=== PATIENT | female | born 1995 | race Caucasian/White ===

== ENCOUNTER 2018-04-21 19:09 | Emergency (ER) | payer SELFPAY | END 2018-04-21 19:55 | disposition home or self-care (01) | LOC: ERS 19:09 | DX: J02.9 Acute pharyngitis, unspecified (principal); F17.210 Nicotine dependence, cigarettes, uncomplicated; F41.9 Anxiety disorder, unspecified; F32.9 Major depressive disorder, single episode, unspecified; J45.909 Unspecified asthma, uncomplicated | CPT/HCPCS: 87081; 87430; 99283 ==

== ENCOUNTER 2018-06-07 19:48 | Emergency (ER) | payer SELFPAY ==
[2018-06-07 21:41] LABS: #Basophils 0.1 thou/uL (0.0-0.2); #Eosinphils 0.2 thou/uL (0.0-0.7); #Lymphocytes 2.9 thou/uL (1.20-3.40); #Monocytes 0.6 thou/uL (0.11-0.59); #Neutrophils 5.2 thou/uL (1.40-6.50); %Basophils 0.6 % (0.0-1.0); %Eosinophils 2.7 % (0.0-10.0); %Lymphocytes 32.1 % (21.0-51.0); %Monocytes 6.9 % (0.0-10.0); %Neutrophils 57.6 % (42.0-75.0); Hemoglobin 13.3 g/dL (12.0-16.0); Mean Corpuscular HGB CONC 33.7 g/dL (32.0-36.0); Mean Corpuscular Hemoglobin 31.4 pg (27.0-31.0); Mean Corpuscular Volume 93.1 fL (78.0-98.0); Mean Platelet Volume 7.9 fL (7.4-10.4); Platelet Count 289 thou/uL (130-400); Red Blood Cell (RBC) Count 4.23 mill/uL (4.20-5.40); White Blood Cell (WBC) Count 9.1 thou/uL (4.8-10.8)
[2018-06-07 22:26] LABS: Bilirubin Negative (Negative); Blood, Urine Small (Negative); Clarity CLEAR (Clear); Glucose, Urine (Dipstick) Negative (Negative); Leukocyte Trace (Negative); Nitrite Negative (Negative); Protein, Urine (Dipstick) Negative (Neg-Trace); Specific Gravity, Urine 1.021 (1.002-1.036); Urobilinogen 0.2 mg/dL (0.2-1.0)
[2018-06-07 22:30] LABS: Bacteria/HPF Rare-Few HPF (None Seen); Hyaline Casts/LPF 4-6 HYALINE CAST LPF (0-3 Hyaline); Pathc Cast-AUWi Flag 0.54 (0-2.49); RBC/HPF 0-3 HPF (0-3); Yeast-AUWi Flag 20.2 (0-25.0)
--- NOTE | 2018-06-07 22:49 | ULT ---
PELVIC ULTRASOUND: 06/07/18 HISTORY: Vaginal bleeding in patient with positive home test. Heavy vaginal bleeding. FINDINGS: Multiple transabdominal and endovaginal sonographic images of the pelvis are obtained. The uterus demonstrates a normal sonographic appearance and measures 7.9 cm x 4.7 cm x 5.8 cm. Endome trial stripe measures 0.5 cm in thickness which is within normal limits. No fluid or fluid collection is seen in the endometrial canal. The ovaries demonstrate a normal sonographic appearance bilaterally with the right ovary measures 3.1 cm x 1.7 cm x 2.8 cm. Left ovary measuring 3.5 cm x 2.1 cm x 3 cm. Doppler evaluation of each ovary with spectral analysis and color flow evaluation demonstrates arteri al and venous flow in each ovary. No free fluid is seen in the cul-de-sac. IMPRESSION: 1. Normal appearing uterus with normal thickness of the endometrial stripe. No fluid collection is seen in the endometrial canal to suggest an intrauterine gestation. The beta HCG level is less yue n 1.2. 2. Normal appearing bilateral ovaries. POS: [facility]
== END 2018-06-07 23:00 | disposition home or self-care (01) ==
LOC: ERS 19:48
DX: O20.9 Hemorrhage in early pregnancy, unspecified (principal); Z3A.01 Less than 8 weeks gestation of pregnancy
CPT/HCPCS: 36415; 76856; 81003; 81015; 84702; 85025; 86900; 86901